=== PATIENT | female | born 1940 | race Caucasian/White ===

== ENCOUNTER 2016-12-24 07:01 | Day surgery (SDC) | payer MEDICARE ==
[~2016-12-24] VITALS: Ht 162.6 cm; Wt 51.5 kg
[~2016-12-24 07:01] MED LIST: ACYC-114 PO; AMIL5TAB2 PO; ASPI-496 PO; BROM0.8T PO; CIPR500T87 PO; ESTRADIOL PO; GLUC1CAP48 PO; LEVO125T PO; LEVO175T5 PO; LEVO250T23 PO; SPIR50TA2 PO; vit e PO
[2016-12-24] MEDS ORDERED: NALOXONE 1 MG/ML, 2ML ONE (07:45)
[2016-12-24] MEDS ORDERED: FENTANYL PF 100 MCG/2ML ONE (07:45)
[2016-12-24] MEDS ORDERED: MIDAZOLAM 1 MG/ML, 5ML ONE (07:45)
[2016-12-24] MEDS ORDERED: FLUMAZENIL 0.1 MG/1 ML, 5ML ONE (07:45)
[2016-12-24] MEDS ORDERED: LIDOCAINE 2%, 20ML ONE (07:57)
[2016-12-24 08:22] VITALS: BP 137/87
[2016-12-24 09:15] LABS: DIFF TOTAL CELLS COUNTED 100 CELL DIFF
[2016-12-24 09:23] LABS: ANISOCYTOSIS 2+; POLYCHROMASIA 1+; VERIFY COUNTS? YES
[2016-12-24 09:24] LABS: MICROCYTOSIS 1+; OVALOCYTES 1+
[2016-12-24 09:26] LABS: LARGE PLATELETS 1+
== END 2016-12-24 10:15 ==
LOC: OUT 07:01
PROVIDERS: ATTEND Internal Medicine Hematology & Oncology
DX: D69.6 Thrombocytopenia, unspecified (principal)
CPT/HCPCS: 36415; 38221; 77012; 85025; 85097; 88237; 88264; 88280; 88305; 88311; 88313; 99156; G0364; J2250; J3010; J3490; 88341; 88342; 99157; G0461; J2310

== ENCOUNTER 2018-04-09 18:37 | Inpatient (IN) | payer MEDICARE ==
[~2018-04-09] VITALS: Ht 162.6 cm; Wt 59.1 kg
[~2018-04-09 18:37] MED LIST changes: -SPIR50TA2 PO; +SPIR50TA4 PO; +TRAZ-136 PO
[2018-04-09] MEDS ORDERED: SODIUM CHLORIDE 0.9% 1,000 ML IV ONE (18:56)
[2018-04-09] MEDS ORDERED: SODIUM CHLORIDE FLUSH 10ML SYR IVF ONE (19:00)
[2018-04-09] MEDS ORDERED: FENTANYL PF 100 MCG/2ML IVPush PRN (19:00)
[2018-04-09 19:35] LABS: ALBUMIN 3.5 g/dL (3.4-5.0); ANION GAP 11 mmol/L (5-15); CALCIUM 8.5 mg/dL (8.5-10.1); CHLORIDE 108 mmol/L (98-107); CREATININE 0.93 mg/dL (0.55-1.02)
[2018-04-09 19:37] LABS: CREATINE KINASE, TOTAL 56 U/L (26-192)
[2018-04-09] MEDS ORDERED: ACYC-114 PO (19:58)
[2018-04-09] MEDS ORDERED: SPIR50TA4 PO (20:01)
[2018-04-09] MEDS ORDERED: MULTIVITAMIN (20:01)
[2018-04-09] MEDS ORDERED: AMIL5TAB2 PO (20:01)
[2018-04-09] MEDS ORDERED: LEVO175T5 PO (20:01)
[2018-04-09] MEDS ORDERED: CIPR500T3 PO (20:01)
[2018-04-09] MEDS ORDERED: ASPI-496 PO (20:01)
[2018-04-09] MEDS ORDERED: FENTANYL PF 100 MCG/2ML ONE (20:19)
[2018-04-09] MEDS ORDERED: TRAZ-136 PO (20:59)
[2018-04-09] MEDS ORDERED: GLUCOSAMINE CHOND (21:00)
[2018-04-09 21:02] LABS: MEAN CORPUSCULAR HEMOGLOBIN 28.4 pg (27.0-34.8); MEAN CORPUSCULAR HGB CONC 32.9 g/dL (32.4-35.8); MEAN CORPUSCULAR VOLUME 86.4 fL (80-100); MEAN PLATELET VOLUME 7.9 fL (7.4-10.4); PLATELET COUNT 189 x10^3/uL (130-400); RED BLOOD COUNT 3.14 x10^6/uL (3.82-5.3)
[2018-04-09] MEDS ORDERED: ACYCLOVIR 200 MG CAPSULE PO STA (21:09)
[2018-04-09 21:22] LABS: MD YES
[2018-04-09] MEDS ORDERED: ACYCLOVIR 400 MG TABLET PO STA (21:26)
[2018-04-09 21:29] LABS: BAND#(MANUAL) 0.01 x10^3/uL; BANDS%(MANUAL) 1 % (0-7); BASOS#(MANUAL) 0.02 x10^3/uL (0-0.1); BASOS% (MANUAL) 3 % (0-1); EOS#(MANUAL) 0.01 x10^3/uL (0.0-0.4); EOS% (MANUAL) 1 % (1-7); LYMPH#(MANUAL) 0.39 x10^3/uL (1-3.4); LYMPHS% (MANUAL) 56 % (22-44); MONOS#(MANUAL) 0.04 x10^3/uL (0.3-2.7); MONOS% (MANUAL) 5 % (2-9); SEG#(MANUAL) 0.24 x10^3/uL (1.8-6.8); SEGS% (MANUAL) 34 % (42-75)
[2018-04-09] MEDS ORDERED: TRAZODONE 50MG TABLET PO SCH (21:30)
[2018-04-09] MEDS ORDERED: CIPROFLOXACIN 500 MG TABLET PO ONE (21:30)
[2018-04-09 21:31] LABS: <PLATELET ESTIMATE> ADEQUATE; <PLT MORPHOLOGY> NORMAL PLT MORPH; ANISOCYTOSIS 1+; HYPOCHROMIA 1+; OVALOCYTES 1+; POLYCHROMASIA 1+; TEAR DROPS 1+
[2018-04-09] MEDS: TBO-FILGRASTIM 480 MCG/0.8 ML SQ SCH (22:00)
[2018-04-09] MEDS ORDERED: BISACODYL 10 MG SUPP PR PRN (22:00)
[2018-04-09] MEDS: ACYCLOVIR 400 MG TABLET PO SCH (22:00)
[2018-04-09] MEDS ORDERED: ONDANSETRON ODT 4 MG PO PRN (22:00)
[2018-04-09] MEDS: CIPROFLOXACIN 500 MG TABLET PO SCH (22:00)
[2018-04-09 22:30] VITALS: BP 139/81
[2018-04-09] MEDS: TRAZODONE 50MG TABLET PO SCH (22:46)
[2018-04-09] MEDS: SODIUM CHLORIDE 0.9% 1,000 ML IV SCH (22:47)
[2018-04-10 01:30] VITALS: BP 128/78
[2018-04-10] MEDS: morphine SULFATE 10 MG/ML, 1ML IVPush PRN (03:28)
[2018-04-10 04:31] LABS: MEAN CORPUSCULAR HEMOGLOBIN 28.4 pg (27.0-34.8); MEAN CORPUSCULAR HGB CONC 32.6 g/dL (32.4-35.8); MEAN CORPUSCULAR VOLUME 87.1 fL (80-100); MEAN PLATELET VOLUME 7.6 fL (7.4-10.4); PLATELET COUNT 143 x10^3/uL (130-400); RED BLOOD COUNT 2.66 x10^6/uL (3.82-5.3)
[2018-04-10 04:37] LABS: ALBUMIN 2.9 g/dL (3.4-5.0); ANION GAP 7 mmol/L (5-15); CHLORIDE 110 mmol/L (98-107)
[2018-04-10 04:42] LABS: ALANINE AMINOTRANSFERASE 29 U/L (12-78); ALKALINE PHOSPHATASE 113 U/L (45-117); BILIRUBIN,TOTAL 0.7 mg/dL (0.2-1.0); CREATININE 0.76 mg/dL (0.55-1.02); TOTAL PROTEIN 5.7 g/dL (6.4-8.2)
[2018-04-10 05:48] LABS: MD YES
[2018-04-10 05:52] LABS: ANISOCYTOSIS 1+; LYMPH#(MANUAL) 0.69 x10^3/uL (1-3.4); LYMPHS% (MANUAL) 86 % (22-44); NRBC % (MANUAL) 4 % (0-1); POLYCHROMASIA 1+; SEG#(MANUAL) 0.11 x10^3/uL (1.8-6.8); SEGS% (MANUAL) 14 % (42-75)
[2018-04-10 05:53] LABS: <PLATELET ESTIMATE> ADEQUATE; <PLT MORPHOLOGY> NORMAL PLT MORPH; OVALOCYTES 1+
[2018-04-10 05:54] LABS: BASOPHILLIC STIPPLING 1+; HYPOCHROMIA 1+; MICROCYTOSIS 1+
[2018-04-10 06:55] VITALS: BP 126/76
[2018-04-10] MEDS ORDERED: SPIRONOLACTONE 50 MG TABLET PO SCH (09:00)
[2018-04-10] MEDS ORDERED: AMILORIDE 5 MG TABLET PO SCH (09:00)
[2018-04-10] MEDS: ACYCLOVIR 400 MG TABLET PO SCH ×2 (09:16→21:10)
[2018-04-10] MEDS: LEVOTHYROXINE 175 MCG TABLET PO SCH (09:16)
[2018-04-10] MEDS: CIPROFLOXACIN 500 MG TABLET PO SCH ×2 (09:16→21:10)
[2018-04-10] MEDS: TBO-FILGRASTIM 480 MCG/0.8 ML SQ SCH (10:29)
[2018-04-10] MEDS: SODIUM CHLORIDE 0.9% 1,000 ML IV SCH (10:31)
[2018-04-10] MEDS ORDERED: PROPOFOL 10 MG/ML, 20ML ONE (11:04)
[2018-04-10] MEDS ORDERED: EPHEDRINE 50 MG/ML, 1ML ONE (11:04)
[2018-04-10 12:21] VITALS: BP 150/73
[2018-04-10] MEDS: DEXTROSE 5% 1,000 ML IV SCH (14:19)
[2018-04-10] MEDS ORDERED: FENTANYL PF 250 MCG/5ML ONE (15:07)
[2018-04-10] MEDS ORDERED: ALBUTEROL SULFATE 2.5 MG/3 ML NPPB PRN (16:00)
[2018-04-10] MEDS ORDERED: HYDROmorphone 1 MG/ML, 1ML IV PRN (16:00)
[2018-04-10] MEDS ORDERED: hydrALAzine 20 MG/ML, 1ML IV PRN (16:00)
[2018-04-10] MEDS ORDERED: LABETALOL 5MG/ML, 20ML IV PRN (16:00)
[2018-04-10] MEDS ORDERED: ACETAMINOPHEN 325 MG TABLET PO PRN (16:00)
[2018-04-10] MEDS ORDERED: LORazepam 2 MG/ML, 1ML IVPush PRN (16:00)
[2018-04-10] MEDS ORDERED: FENTANYL PF 100 MCG/2ML IV PRN (16:00)
[2018-04-10] MEDS ORDERED: OXYcodone 5 MG/5 ML ORAL.SOL UDC PO PRN (16:00)
[2018-04-10] MEDS ORDERED: FENTANYL PF 100 MCG/2ML ONE (16:56)
[2018-04-10] MEDS ORDERED: ACETAMINOPHEN 650 MG/20.3 ML UDC ONE (16:56)
[2018-04-10] MEDS ORDERED: OXYcodone 5 MG/5 ML ORAL.SOL UDC ONE (16:57)
[2018-04-10] MEDS: ACETAMINOPHEN 325 MG TABLET PO PRN (17:09)
[2018-04-10] MEDS ORDERED: SODIUM CHLORIDE 0.9% 500 ML IV SCH (19:30)
[2018-04-10 19:40] VITALS: BP 90/59
[2018-04-10] MEDS: SODIUM CHLORIDE FLUSH 10ML SYR IVF SCH (21:10)
[2018-04-10] MEDS: TRAZODONE 50MG TABLET PO SCH (21:10)
[2018-04-11] VITALS (10 sets, daily range): BP systolic 90–111; BP diastolic 54–70
[2018-04-11] MEDS: CLINDAMYCIN PMX 600MG/50ML 50 ML IVPB SCH ×2 (00:24→07:42)
[2018-04-11] MEDS: DEXTROSE 5% 1,000 ML IV SCH (05:40)
[2018-04-11 06:06] LABS: ALBUMIN 2.6 g/dL (3.4-5.0); ANION GAP 10 mmol/L (5-15); CHLORIDE 108 mmol/L (98-107)
[2018-04-11 06:11] LABS: CREATININE 1.08 mg/dL (0.55-1.02)
[2018-04-11 06:12] LABS: ALANINE AMINOTRANSFERASE 138 U/L (12-78); ALKALINE PHOSPHATASE 152 U/L (45-117); BILIRUBIN,TOTAL 0.7 mg/dL (0.2-1.0); TOTAL PROTEIN 5.5 g/dL (6.4-8.2)
[2018-04-11 06:19] LABS: MD YES; MEAN CORPUSCULAR HEMOGLOBIN 28.6 pg (27.0-34.8); MEAN CORPUSCULAR HGB CONC 33.4 g/dL (32.4-35.8); MEAN CORPUSCULAR VOLUME 85.7 fL (80-100); MEAN PLATELET VOLUME 8.2 fL (7.4-10.4); PLATELET COUNT 128 x10^3/uL (130-400); RED BLOOD COUNT 1.95 x10^6/uL (3.82-5.3); RED CELL DISTRIBUTION WIDTH 24.9 % (9.6-15.2)
[2018-04-11 06:30] LABS: ANISOCYTOSIS 1+; HYPOCHROMIA 1+; LYMPH#(MANUAL) 0.14 x10^3/uL (1-3.4); LYMPHS% (MANUAL) 72 % (22-44); MICROCYTOSIS 1+; MONOS#(MANUAL) 0.02 x10^3/uL (0.3-2.7); MONOS% (MANUAL) 8 % (2-9); NRBC % (MANUAL) 12 % (0-1); POLYCHROMASIA 1+; SEG#(MANUAL) 0.04 x10^3/uL (1.8-6.8); SEGS% (MANUAL) 20 % (42-75)
[2018-04-11 06:31] LABS: <PLATELET ESTIMATE> ADEQUATE; LARGE PLATELETS 1+
[2018-04-11] MEDS ORDERED: DIPHENHYDRAMINE 25 MG CAPSULE PO ONE (07:30)
[2018-04-11] MEDS ORDERED: ACETAMINOPHEN 325 MG TABLET PO ONE (07:30)
[2018-04-11] MEDS: ACYCLOVIR 400 MG TABLET PO SCH ×2 (07:43→20:25)
[2018-04-11] MEDS: CIPROFLOXACIN 500 MG TABLET PO SCH ×2 (07:44→20:25)
[2018-04-11] MEDS: LEVOTHYROXINE 175 MCG TABLET PO SCH ×2 (07:44→09:34)
[2018-04-11] MEDS: SODIUM CHLORIDE FLUSH 10ML SYR IVF SCH ×2 (07:45→21:00)
[2018-04-11] MEDS: TBO-FILGRASTIM 480 MCG/0.8 ML SQ SCH (07:59)
[2018-04-11 19:04] LABS: MD YES; MEAN CORPUSCULAR HEMOGLOBIN 30.1 pg (27.0-34.8); MEAN CORPUSCULAR HGB CONC 33.8 g/dL (32.4-35.8); MEAN CORPUSCULAR VOLUME 89.3 fL (80-100); MEAN PLATELET VOLUME 8.3 fL (7.4-10.4); PLATELET COUNT 116 x10^3/uL (130-400); RED BLOOD COUNT 2.75 x10^6/uL (3.82-5.3); RED CELL DISTRIBUTION WIDTH 19.5 % (9.6-15.2)
[2018-04-11 19:25] LABS: ANISOCYTOSIS 1+; BASOS#(MANUAL) 0.01 x10^3/uL (0-0.1); BASOS% (MANUAL) 1 % (0-1); LYMPH#(MANUAL) 0.74 x10^3/uL (1-3.4); LYMPHS% (MANUAL) 82 % (22-44); MONOS#(MANUAL) 0.03 x10^3/uL (0.3-2.7); MONOS% (MANUAL) 3 % (2-9); NRBC % (MANUAL) 6 % (0-1); SEG#(MANUAL) 0.13 x10^3/uL (1.8-6.8); SEGS% (MANUAL) 14 % (42-75)
[2018-04-11 19:26] LABS: BASOPHILLIC STIPPLING 1+; HYPOCHROMIA 1+; MICROCYTOSIS 1+; OVALOCYTES 1+; POLYCHROMASIA 1+; TEAR DROPS 1+
[2018-04-11 19:27] LABS: <PLATELET ESTIMATE> DECREASED; LARGE PLATELETS 1+; SCHISTOCYTES 1+
[2018-04-11] MEDS: TRAZODONE 50MG TABLET PO SCH (20:25)
[2018-04-11] MEDS: ACETAMINOPHEN 325 MG TABLET PO PRN (20:25)
[2018-04-12 01:44] VITALS: BP 114/64
[2018-04-12] MEDS: OXYcodone IR 5MG TABLET PO PRN ×3 (02:45→22:51)
[2018-04-12] MEDS: DEXTROSE 5% 1,000 ML IV SCH ×2 (02:56→16:19)
[2018-04-12 05:44] LABS: ALBUMIN 2.5 g/dL (3.4-5.0); ANION GAP 9 mmol/L (5-15); CALCIUM 7.8 mg/dL (8.5-10.1); CHLORIDE 106 mmol/L (98-107); CREATININE 0.85 mg/dL (0.55-1.02)
[2018-04-12 05:56] LABS: MD YES
[2018-04-12 05:58] LABS: MEAN CORPUSCULAR HEMOGLOBIN 30.3 pg (27.0-34.8); MEAN CORPUSCULAR VOLUME 89.1 fL (80-100); PLATELET COUNT 104 x10^3/uL (130-400); RED CELL DISTRIBUTION WIDTH 19.9 % (9.6-15.2)
[2018-04-12] MEDS ORDERED: LEVOTHYROXINE 175 MCG TABLET PO SCH ×2 (06:00→18:00)
[2018-04-12 06:34] LABS: EOS#(MANUAL) 0.08 x10^3/uL (0.0-0.4); EOS% (MANUAL) 8 % (1-7); LYMPHS% (MANUAL) 80 % (22-44); MONOS#(MANUAL) 0.06 x10^3/uL (0.3-2.7); MONOS% (MANUAL) 6 % (2-9); NRBC % (MANUAL) 2 % (0-1); SEG#(MANUAL) 0.06 x10^3/uL (1.8-6.8); SEGS% (MANUAL) 6 % (42-75)
[2018-04-12 06:35] LABS: <PLATELET ESTIMATE> DECREASED; <PLT MORPHOLOGY> NORMAL PLT MORPH; ANISOCYTOSIS 1+; BASOPHILLIC STIPPLING 1+; HYPOCHROMIA 1+
[2018-04-12] MEDS ORDERED: MAGNESIUM SULFATE PMX 2GM/50ML 50 ML IV ONE (07:00)
[2018-04-12 07:05] VITALS: BP 111/67
[2018-04-12] MEDS: TBO-FILGRASTIM 480 MCG/0.8 ML SQ SCH (08:57)
[2018-04-12] MEDS: CIPROFLOXACIN 500 MG TABLET PO SCH ×2 (08:58→20:13)
[2018-04-12] MEDS: ACYCLOVIR 400 MG TABLET PO SCH ×2 (08:58→20:14)
[2018-04-12] MEDS: SODIUM CHLORIDE FLUSH 10ML SYR IVF SCH ×2 (08:59→20:14)
[2018-04-12] MEDS: morphine SULFATE 10 MG/ML, 1ML IVPush PRN (09:11)
[2018-04-12 13:12] VITALS: BP 116/72
[2018-04-12 18:49] VITALS: BP 148/77
[2018-04-12] MEDS: TRAZODONE 50MG TABLET PO SCH (20:14)
[2018-04-13 03:58] VITALS: BP 121/69
[2018-04-13] MEDS: DEXTROSE 5% 1,000 ML IV SCH (04:40)
[2018-04-13 05:16] LABS: ALBUMIN 2.5 g/dL (3.4-5.0); ANION GAP 9 mmol/L (5-15); CALCIUM 8.2 mg/dL (8.5-10.1); CHLORIDE 104 mmol/L (98-107)
[2018-04-13 05:19] LABS: ALANINE AMINOTRANSFERASE 57 U/L (12-78); ALKALINE PHOSPHATASE 134 U/L (45-117); BILIRUBIN,TOTAL 1.1 mg/dL (0.2-1.0); CREATININE 0.85 mg/dL (0.55-1.02); TOTAL PROTEIN 5.7 g/dL (6.4-8.2)
[2018-04-13 06:29] LABS: MEAN CORPUSCULAR HEMOGLOBIN 30.5 pg (27.0-34.8); MEAN CORPUSCULAR VOLUME 89.6 fL (80-100); MEAN PLATELET VOLUME 7.8 fL (7.4-10.4); PLATELET COUNT 126 x10^3/uL (130-400); RED BLOOD COUNT 2.69 x10^6/uL (3.82-5.3); RED CELL DISTRIBUTION WIDTH 19.7 % (9.6-15.2)
[2018-04-13 06:31] LABS: MD YES
[2018-04-13 06:35] LABS: BASOS#(MANUAL) 0.02 x10^3/uL (0-0.1); BASOS% (MANUAL) 2 % (0-1); LYMPH#(MANUAL) 0.67 x10^3/uL (1-3.4); LYMPHS% (MANUAL) 84 % (22-44); MONOS#(MANUAL) 0.03 x10^3/uL (0.3-2.7); MONOS% (MANUAL) 4 % (2-9); SEG#(MANUAL) 0.08 x10^3/uL (1.8-6.8); SEGS% (MANUAL) 10 % (42-75)
[2018-04-13 06:36] LABS: ANISOCYTOSIS 1+; HYPOCHROMIA 1+; MICROCYTOSIS 1+; OVALOCYTES 1+; POLYCHROMASIA 1+
[2018-04-13 06:37] LABS: <PLATELET ESTIMATE> ADEQUATE; BASOPHILLIC STIPPLING 1+; LARGE PLATELETS 1+; SCHISTOCYTES 1+
[2018-04-13 07:29] VITALS: BP 137/69
[2018-04-13] MEDS: CIPROFLOXACIN 500 MG TABLET PO SCH (08:57)
[2018-04-13] MEDS: ACYCLOVIR 400 MG TABLET PO SCH (08:57)
[2018-04-13] MEDS: TBO-FILGRASTIM 480 MCG/0.8 ML SQ SCH (08:57)
[2018-04-13] MEDS: SODIUM CHLORIDE FLUSH 10ML SYR IVF SCH (09:00)
[2018-04-13] MEDS ORDERED: POLYETHYLENE GLYCOL 17 GM PACKET NG PRN (10:00)
[2018-04-13] MEDS: OXYcodone IR 5MG TABLET PO PRN (10:44)
[2018-04-13] MEDS ORDERED: ASPI-496 PO (11:22)
[2018-04-13 13:16] VITALS: BP 156/78
== END 2018-04-13 14:41 | DRG 481 ==
LOC: MERGE 21:32 → ED 21:32 → EDIP 21:37 → 3NW 22:00
PROVIDERS: ADMIT Family Medicine; ATTEND Family Medicine
PROC: 0QS736Z Reposition Left Upper Femur with Intramedullary Internal Fixation Device, Percutaneous Approach (ICD-10-PCS; 2018-04-10)
PROC: 30233N1 Transfusion of Nonautologous Red Blood Cells into Peripheral Vein, Percutaneous Approach (ICD-10-PCS; principal; 2018-04-11)
DX: S72.142A Displaced intertrochanteric fracture of left femur, initial encounter for closed fracture (principal); E44.0 Moderate protein-calorie malnutrition; D62 Acute posthemorrhagic anemia; D46.9 Myelodysplastic syndrome, unspecified; E03.9 Hypothyroidism, unspecified; E11.9 Type 2 diabetes mellitus without complications; H91.90 Unspecified hearing loss, unspecified ear; I10 Essential (primary) hypertension; I25.10 Atherosclerotic heart disease of native coronary artery without angina pectoris; I25.2 Old myocardial infarction; K80.20 Calculus of gallbladder without cholecystitis without obstruction; R00.0 Tachycardia, unspecified; W01.0XXA Fall on same level from slipping, tripping and stumbling without subsequent striking against object, initial encounter; Y93.01 Activity, walking, marching and hiking; Y92.89 Other specified places as the place of occurrence of the external cause; Y99.8 Other external cause status; Z68.22 Body mass index [BMI] 22.0-22.9, adult; Z88.1 Allergy status to other antibiotic agents; Z90.710 Acquired absence of both cervix and uterus; Z92.21 Personal history of antineoplastic chemotherapy
CPT/HCPCS: 36415; 36430; 76000; 76700; 80048; 80053; 82040; 82550; 83735; 85025; 86850; 86900; 86923; 93005; 96361; 96374; C1713; G0378; J2704; J3010; J7070; J2270; J3475; J7030; J7040; P9040; Q0163